=== PATIENT | female | born 1965 | race Hispanic/Latino ===

== ENCOUNTER 2025-06-17 13:51 | Outpatient (CLI) | payer OTHER, MEDICAID | END 2025-06-17 13:52 | disposition home or self-care (01) | LOC: BICMRI 13:51 | PROVIDERS: ATTEND Family Medicine | DX: M48.04 Spinal stenosis, thoracic region (principal); M47.814 Spondylosis without myelopathy or radiculopathy, thoracic region | CPT/HCPCS: 72146 ==